=== PATIENT | male | born 1990 | race Caucasian/White ===

== ENCOUNTER → 2016-10-04 | Outpatient (CLI) | payer OTHER ==
[2016-10-04 12:23] LABS: ALT/SGPT 46 U/L (12-78); AST/SGOT 20 U/L (15-37); BLOOD UREA NITROGEN 16 mg/dl (7-18); BUN/CREATININE RATIO 17.2 (10-20); CALCIUM 9.1 mg/dl (8.5-10.1); CARBON DIOXIDE 29 mmol/L (21-32); CHLORIDE 106 mmol/L (98-107); CREATININE 0.93 mg/dl (0.60-1.40); GLUCOSE 91 mg/dl (70-99); POTASSIUM 3.8 mmol/L (3.5-5.1); SODIUM 141 mmol/L (136-145)
[2016-10-04 12:33] LABS: ALB/GLOB RATIO 1.1 (0.9-2); ALKALINE PHOSPHATASE 48 U/L (45-117); CHOLESTEROL 170 mg/dl (0-200); HDL CHOLESTEROL 43 mg/dl; TRIGLYCERIDES 85 mg/dl (0-150); VERY LOW DENSITY LIPOPROT CALC 17 mg/dl
[2016-10-04 12:36] LABS: BASO % 0.4 %; BASO ABS # 0.04 K/uL (0-0.2); COMPLETE YES; EOS % 3.8 %; IG% 0.4 %; LYMPH % 29.1 %; LYMPH ABS # 2.76 K/uL (1.2-3.4); MEAN CELL VOLUME 86.1 fL (80-100); MEAN CORPUSCULAR HEMOGLOBIN 29.3 pg (25-34); MEAN CORPUSCULAR HGB CONC 34.1 g/dl (32-36); MEAN PLATELET VOLUME 11.4 fL (7.4-10.4); MONO % 7.7 %; NEUT % 58.6 %; PLATELET COUNT 286 K/uL (130-400); RED BLOOD COUNT 5.69 M/uL (4.7-6.1)
== END | disposition home or self-care (01) ==
LOC: C.LABSPEC 11:50
PROVIDERS: ATTEND Internal Medicine
DX: R53.83 Other fatigue (principal); E66.09 Other obesity due to excess calories; E78.5 Hyperlipidemia, unspecified; E04.1 Nontoxic single thyroid nodule